=== PATIENT | female | born 1995 | race African-American/Black ===

== ENCOUNTER 2017-01-18 16:47 | Observation (INO) | payer MEDICAID ==
[~2017-01-18] VITALS: Ht 172.7 cm; Wt 54.9 kg
[2017-01-18] MEDS ORDERED: PREN-88 PO (18:12)
== END 2017-01-18 19:10 | disposition home or self-care (01) ==
LOC: L&D 16:47
PROVIDERS: ADMIT Specialist; ATTEND Specialist
DX: O26.892 Other specified pregnancy related conditions, second trimester (principal); R10.30 Lower abdominal pain, unspecified; W18.39XA Other fall on same level, initial encounter; Y93.89 Activity, other specified; Y92.89 Other specified places as the place of occurrence of the external cause; Y99.8 Other external cause status; Z3A.22 22 weeks gestation of pregnancy
CPT/HCPCS: 76805; 99281; G0378

== ENCOUNTER 2017-03-22 00:14 | Observation (INO) | payer MEDICAID ==
[~2017-03-22] VITALS: Ht 172.7 cm; Wt 59.9 kg
[~2017-03-22 00:14] MED LIST: PREN-88 PO
== END 2017-03-22 01:35 | disposition home or self-care (01) ==
LOC: L&D 00:14
PROVIDERS: ADMIT Obstetrics & Gynecology; ATTEND Obstetrics & Gynecology
DX: O26.893 Other specified pregnancy related conditions, third trimester (principal); N89.8 Other specified noninflammatory disorders of vagina; R30.0 Dysuria; Z3A.30 30 weeks gestation of pregnancy
CPT/HCPCS: G0378 ×2

== ENCOUNTER 2017-05-30 17:07 | Observation (INO) | payer MEDICAID ==
[~2017-05-30] VITALS: Ht 172.7 cm; Wt 68.0 kg
== END 2017-05-30 19:00 | disposition home or self-care (01) ==
LOC: L&D 17:07
PROVIDERS: ADMIT Obstetrics & Gynecology; ATTEND Obstetrics & Gynecology
DX: O26.893 Other specified pregnancy related conditions, third trimester (principal); O48.0 Post-term pregnancy; R10.9 Unspecified abdominal pain; Z3A.40 40 weeks gestation of pregnancy
CPT/HCPCS: G0378 ×2; 99281

== ENCOUNTER 2017-06-03 17:27 | Observation (INO) | payer MEDICAID ==
[~2017-06-03] VITALS: Ht 172.7 cm; Wt 69.4 kg
== END 2017-06-03 20:43 | disposition home or self-care (01) ==
LOC: L&D 17:27
PROVIDERS: ADMIT Obstetrics & Gynecology; ATTEND Obstetrics & Gynecology
DX: O48.0 Post-term pregnancy (principal); Z3A.41 41 weeks gestation of pregnancy
CPT/HCPCS: 76815; 76818; 99281; G0378

== ENCOUNTER 2019-05-08 11:02 | Emergency (ER) | payer MEDICAID ==
[~2019-05-08] VITALS: Ht 170.2 cm; Wt 65.0 kg
[2019-05-08 16:56] VITALS: BP 125/80
== END 2019-05-08 16:57 | disposition home or self-care (01) ==
LOC: ER 11:02
DX: J10.1 Influenza due to other identified influenza virus with other respiratory manifestations (principal); R50.9 Fever, unspecified; F17.210 Nicotine dependence, cigarettes, uncomplicated
CPT/HCPCS: 87804; 99283

== ENCOUNTER 2024-09-16 09:49 | Emergency (ER) | payer BC, MEDICAID ==
[~2024-09-16] VITALS: Ht 167.6 cm; Wt 60.0 kg
[2024-09-16 09:55] VITALS: O2SAT 100
[2024-09-16 10:02] VITALS: BP 108/71; PULSE 87; RESP 16; TEMP 36.8; O2SAT 76
[2024-09-16] MEDS ORDERED: AM250 MT (10:57)
== END 2024-09-16 11:18 | disposition left against medical advice (07) ==
LOC: ER 09:49
DX: J02.8 Acute pharyngitis due to other specified organisms (principal)
CPT/HCPCS: 87070; 87430; 99283